=== PATIENT | female | born 1960 | race Caucasian/White ===

== ENCOUNTER 2017-07-28 14:36 | Observation (INO) | payer SELFPAY ==
[2017-07-28 17:45] LABS: Troponin I Less than 0.010 ng/mL (< 0.028)
[2017-07-28] MEDS ORDERED: hydrALAZINE 20 MG/ML VIAL SLOW IVP PRN (21:51)
[2017-07-28] MEDS ORDERED: Nitroglycerin 0.4 MG TAB (25 Tab Bottle) PO PRN (21:51)
[2017-07-28] MEDS ORDERED: Ondansetron HCl/PF 4 MG/2 ML Vial IVP PRN (21:51)
[2017-07-28] MEDS ORDERED: diphenhydrAMINE 25 MG CAP PO PRN (21:51)
[2017-07-28] MEDS ORDERED: cloNIDine 0.1 MG TAB PO PRN (21:51)
[2017-07-28] MEDS ORDERED: Ondansetron ODT 4 MG TAB PO PRN (21:51)
[2017-07-28] MEDS ORDERED: Famotidine 20 MG TAB PO SCH (22:00)
[2017-07-28] MEDS: Acetaminophen 500 MG TAB PO PRN (22:06)
[2017-07-28] MEDS: Sodium Chloride 0.9% 1,000 ML IV SCH (22:08)
[2017-07-28 23:30] LABS: Troponin I Less than 0.010 ng/mL (< 0.028)
--- NOTE | 2017-07-29 01:18 | HP ---
DATE OF ADMISSION: 07/28/2017 PRIMARY CARE PHYSICIAN: Dr. Alba, [place], [place]. CHIEF COMPLAINT: Back and neck pain. HISTORY OF PRESENT ILLNESS: This is a 57-year-old female who presents to [facility], complaining of upper neck and left arm discomfort while at work. The patient state s the symptoms progressed with associated diaphoresis and general weakness with some tingling of her left upper extremity. The patient states she noted some similar symptoms over the last 2 weeks inter mittently and apparently was recently evaluated by her primary care provider after complaints of back pain and general fatigue. The patient states she has been under an increased amount of stress due t o family problems over the last 2 weeks and believe this may be a contributing factor. The patient s tates she was evaluated by her primary care provider and recently started back on blood pressure medi cation, which she states she was off for 6 months previous. The patient also states she has a histor y of coronary artery disease, status post cardiac stent placement x2, one in 2011 and one in 2013. T he patient states she has been noncompliant with any specific followup medications and continues to s moke a pack of cigarettes daily. The patient states she was diagnosed with a potential urinary tract infection by her primary care provider and initiated on Bactrim. The patient also noted increased b urning sensation on her face, ears, and upper neck within 24 hours of starting the medication. The p atient became concerned, presenting to the emergency room when the back and neck pain progressed with associated diaphoresis. In the emergency room, the patient underwent general evaluation, receiving aspirin, nitroglycerin with some relief of symptoms. Chest x-ray was unrevealing and patient was ref erred to [facility] for further evaluation after an initial emergency room diane luation in [place]. PAST MEDICAL HISTORY: 1. Coronary artery disease, status post cardiac stent placement x2. 2. Tobacco abuse. 3. Hypertension, labile secondarily to noncompliance. 4. History of angina. 5. Hyperlipidemia. PAST SURGICAL HISTORY: Status post cardiac stent placement x2. CURRENT MEDICATIONS: 1. Bactrim DS 1 tablet p.o. b.i.d. 2. Lisinopril/hydrochlorothiazide 10/12.5 mg 1 tab p.o. daily. ALLERGIES: No known drug allergies. FAMILY HISTORY: Positive for coronary artery disease in her father. SOCIAL HISTORY: Patient is . Residing in the [place], [place] area. Smokes up to a pack of cigarettes daily. No alcohol or illicit drug use. Works in a daycare setting. REVIEW OF SYSTEMS: The following complete review of systems was negative, unless otherwise mentioned in the HPI or below: Constitutional: Weight loss or gain, ability to conduct usual activities. Sk in: Rash, itching. Eyes: Double vision, pain. ENT/Mouth: Nose bleeding, neck stiffness, pain, te nderness. Cardiovascular: Palpitations, dyspnea on exertion, orthopnea. Respiratory: Shortness of breath, wheezing, cough, hemoptysis, fever or night sweats. Gastrointestinal: Poor appetite, abdom inal pain, heartburn, nausea, vomiting, constipation, or diarrhea. Genitourinary: Urgency, frequenc y, dysuria, nocturia. Musculoskeletal: Pain, swelling. Neurologic/Psychiatric: Anxiety, depressio n. Allergy/Immunologic: Skin rash, bleeding tendency. PHYSICAL EXAMINATION: VITAL SIGNS: On admission, blood pressure 113/70, pulse 79, respiratory rate 18, temperature 98 degr ees Fahrenheit, O2 saturation 94% on 2 liters per minute by nasal cannula. GENERAL APPEARANCE: This is a 57-year-old female, alert and oriented x3, pleasant, in no a cute distress. HEENT: Pupils are equal, round, and reactive to light and accommodation. Extraocular muscles are in tact. No scleral icterus. No conjunctival injection. Nares patent. OP is clear. Teeth in poor re pair. NECK: Supple. No cervical adenopathy, no thyromegaly, no carotid bruits, no JVD appreciated. Cervi mel spine with full active and passive range of motion. No meningeal signs appreciated. CHEST: Diminished breath sounds in the bases bilaterally. CARDIOVASCULAR: S1, S2, without noted murmur. Heart sounds are distant. ABDOMEN: Obese, soft, nontender, nondistended. Bowel sounds are positive in all four quadrants. Th ere is no hepatosplenomegaly, no abdominal bruits, no rebound or guarding appreciated. EXTREMITIES: Warm and dry with fair turgor. No clubbing, cyanosis, or asymmetric edema appreciated. Pulses palpable distally at the dorsalis pedis, posterior tibial, and popliteal arteries bilaterall y. Capillary refill less than 2 seconds. SKIN: Shows scattered erythematous patches on the lower extremities. NEUROLOGIC: Cranial nerves II-XII are grossly intact. No focal or lateralizing signs appreciated. PERTINENT LABORATORY AND X-RAY FINDINGS: Sodium 139, potassium 3.9, chloride is 100, CO2 of 25, BUN 23, creatinine 1.53 with estimated GFR of 35, glucose 109, calcium 9.4. LFTs within normal limits. Troponin I negative x2. BNP less than 10. Lipase 14. CBC within normal limits. EKG dated 07/28/20 17 by my interpretation shows sinus mechanism with heart rates in 70s. Attenuated R waves noted in t he precordial leads. Normal axis. No acute ST-T wave changes appreciated. ASSESSMENT AND PLAN: 1. Chest/neck pain. Patient will be observed in the telemetry unit. Questionable anginal equivalen t. Initial troponins negative x2. Suspect potential reaction to recent prescription for Bactrim. W e will continue serial cardiac enzymes for full complement rule out. Check fasting lipid profile in the a.m. Continue aspirin 81 mg p.o. daily. 2. Hypertension. Labile due to noncompliance. We will continue serial monitoring. May need additi onal titration of current antihypertensive regimen. 3. Question of acute kidney injury. We will continue intravenous fluids with normal saline at 100 m L per hour. Avoid nephrotoxic agents and contrast media. Repeat creatinine in the a.m. 4. Tobacco abuse. We will offer smoking cessation resources prior to discharge. 5. Coronary artery disease, status post cardiac stent placement x2. Continue aspirin 81 mg p.o. miguelito ly. Check fasting lipid profile in the a.m. Smoking cessation. 6. Question of allergic reaction. We will continue to monitor clinically. No current evidence of h lianet or acute pulmonary decompensation. Benadryl 25 mg p.o. q.6 hours p.r.n. for pruritus. 7. Prophylaxis. Sequential compression devices while in bed. Pepcid 20 mg p.o. b.i.d. 8. Code status is FULL. Surrogate medical decision maker is the patient's daughter.
[2017-07-29] MEDS: Acetaminophen 500 MG TAB PO PRN (05:02)
[2017-07-29 05:24] LABS: Anion Gap 12 mmol/L (10-20); BUN (Urea Nitrogen) 24 mg/dL (9.8-20.1); Calc. Creatinine Clearance 122 mL/min (70-130); Calcium 9.3 mg/dL (7.8-10.44); Carbon Dioxide 31 mmol/L (22-29); Chloride 99 mmol/L (98-107); Cholesterol 297 mg/dl (< 200 Desired); Estimated GFR-MDRD 72; LDL Cholesterol, Calculated 223 mg/dL
[2017-07-29 05:30] LABS: Band 1 % (5-11); Hematocrit 40.1 % (36.0-47.0); Mean Platelet Volume 7.1 fL (7.4-10.4); Neutrophil 47 % (42-75); Red Blood Cell (RBC) Count 4.28 mill/uL (4.20-5.40)
[2017-07-29 08:23] VITALS: BP 106/55; TEMP 98.2
[2017-07-29] MEDS ORDERED: Famotidine 20 MG TAB PO SCH (09:00)
[2017-07-29] MEDS ORDERED: Ketorolac Tromethamine 30 MG/ML VIAL IVP SCH (09:30)
[2017-07-29] MEDS: Sodium Chloride 0.9% 1,000 ML IV SCH (09:59)
--- NOTE | 2017-07-29 13:59 | DIS ---
DISCHARGE DIAGNOSES: 1. Allergic reaction to Bactrim, resolving. 2. Back and neck pain, musculoskeletal in origin. 3. Hypertension, improved. 4. Acute kidney injury, mild, resolved. 5. Tobacco abuse. 6. Coronary artery disease status post cardiac stent placement x2, stable. 7. Hyperlipidemia, uncontrolled. CONSULTATIONS: None. PERTINENT LAB AND X-RAY FINDINGS: Creatinine ranged between 0.82-1.52, estimated GFR ranged between 35-72, total cholesterol 297, triglycerides 173, HDL 39, LDL 223, troponin I negative x3. CBC within normal limits. HOSPITAL COURSE: The patient was observed on the telemetry unit after initially presenting with back and neck and questionable chest pain. The patient underwent serial cardiac enzymes which were negat rosi x3. The patient's presentation with a prominent component of allergic reaction to likely the [place] trim exposure. The patient received Benadryl for symptomatic relief and Toradol. The patient did re ceive intravenous fluids and general supportive measures with mild acute kidney injury noted on metab olic sampling. The patient was initiated on aspirin 81 mg daily, and instructed to continue indefini tely given the patient's history of coronary artery disease with stent placement. No current evidenc e suggestive of acute coronary syndrome with telemetry monitoring showing sinus mechanism without acu te arrhythmia or dysrhythmia. The patient was initiated on Pravachol 40 mg daily due to uncontrolled hyperlipidemia. Overall, the patient remained clinically stable and ready for discharge 07/29/2017. DISCHARGE MEDICATIONS: 1. Aspirin 81 mg 1 tab p.o. daily. 2. Nexium 20 mg p.o. daily. 3. Lisinopril/HCTZ 10/12.5 mg 1 tab p.o. daily. 4. Pravachol 40 mg p.o. at bedtime. 5. Excedrin Extra Strength 2 capsules p.o. b.i.d. p.r.n. headache. FOLLOWUP: The patient will follow up with her primary care provider, Dr. Alba within 7 days of discharge. CONDITION ON DISCHARGE: Stable. ACTIVITY: Ad madyson. DIET: Heart healthy. CODE STATUS: Full. DISPOSITION: Home 07/29/2017.
== END 2017-07-29 12:34 | disposition home or self-care (01) ==
LOC: ERS 14:36 → 2SW 16:00
PROVIDERS: ADMIT Family Medicine; ATTEND Family Medicine
DX: M54.89 Other dorsalgia (principal); M54.2 Cervicalgia; T37.0X5A Adverse effect of sulfonamides, initial encounter; I25.10 Atherosclerotic heart disease of native coronary artery without angina pectoris; I10 Essential (primary) hypertension; E78.5 Hyperlipidemia, unspecified; F17.210 Nicotine dependence, cigarettes, uncomplicated; Z79.2 Long term (current) use of antibiotics; Z79.899 Other long term (current) drug therapy; Z95.5 Presence of coronary angioplasty implant and graft; Z82.49 Family history of ischemic heart disease and other diseases of the circulatory system; Z88.8 Allergy status to other drugs, medicaments and biological substances
CPT/HCPCS: 36415; 80048; 80061; 85007; 85027; 93005; 94760; 96361; 96374; 99406; A4216; G0378; J1885